=== PATIENT | female | born 1960 | race American Indian/Alaskan Native ===

== ENCOUNTER 2018-03-25 02:24 | Emergency (ER) | payer MEDICAID ==
[2018-03-25 03:31] VITALS: BP 139/81
[2018-03-25 03:49] LABS: Basophils # (Auto) 0.1 K/mm3 (0.0-0.1); Basophils % (Auto) 0.9 % (0.0-1.8); Eosinophils # (Auto) 0.2 K/mm3 (0.0-0.4); Eosinophils % (Auto) 1.3 % (0.0-4.3); Hematocrit 47.2 % (30.3-42.9); Hemoglobin 16.2 gm/dl (10.1-14.3); Lymphocytes # (Auto) 2.4 K/mm3 (1.2-5.4); Lymphocytes % (Auto) 20.1 % (13.4-35.0); Mean Corpuscular HGB Conc 34 % (30-34); Mean Corpuscular Hemoglobin 32 pg (28-32); Mean Corpuscular Volume 93 fl (79-97); Monocytes # (Auto) 0.5 K/mm3 (0.0-0.8); Monocytes % (Auto) 4.3 % (0.0-7.3); Platelet Count 406 K/mm3 (140-440); Red Cell Distribution Width 14.2 % (13.2-15.2)
[2018-03-25 04:06] LABS: BUN/Creatinine Ratio 15; Blood Urea Nitrogen 9 mg/dL (7-17); Calcium 9.2 mg/dL (8.4-10.2); Hemolysis Index 14
[2018-03-25] MEDS ORDERED: PERCOCET 5/325 PO ONE (04:52)
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
--- NOTE | 2018-03-25 05:25 | XRay Report ---
FINAL REPORT EXAM: XR KNEE 1-2V RT HISTORY: fall leg pain RT KNEE/ TIB/FIB TECHNIQUE: AP and lateral views of the right knee were submitted. There are no previous studies available for comparison. FINDINGS: There is generalized osteoporosis with previous [id number] amputation. There is no evidence of fracture or joint effusion. There is slight prominence of the prepatellar soft tissues. Surgical clips seen in the upper calf posteriorly. IMPRESSION: Previous below the knee amputation without osteoporosis. Mild prepatellar soft tissue fullness. No evidence of fracture or joint effusion.
== END 2018-03-25 05:10 | disposition home or self-care (01) ==
LOC: ED 02:24
DX: S80.11XA Contusion of right lower leg, initial encounter (principal); R07.89 Other chest pain; I10 Essential (primary) hypertension; E11.9 Type 2 diabetes mellitus without complications; M19.90 Unspecified osteoarthritis, unspecified site; F17.200 Nicotine dependence, unspecified, uncomplicated; W18.30XA Fall on same level, unspecified, initial encounter; Y93.89 Activity, other specified; Y99.8 Other external cause status; Y92.098 Other place in other non-institutional residence as the place of occurrence of the external cause
CPT/HCPCS: 36415; 80048; 84484; 85025; 93005; 93010